=== PATIENT | female | born 1980 ===

== ENCOUNTER 2018-11-23 20:04 | Emergency (ER) | payer OTHER ==
[~2018-11-23] VITALS: Ht 151.1 cm; Wt 54.5 kg
[2018-11-23 20:15] VITALS: BP 121/74
[2018-11-23 21:21] LABS: URINE HCG NEGATIVE (NEG)
[2018-11-23 21:23] LABS: CLARITY,URINE SLIGHTLY CLOUDY (Clear); COLOR,URINE YELLOW (Yellow); GLUCOSE, URINE NEGATIVE (Neg); KETONES,URINE NEGATIVE (Neg); LEUKOCYTE ESTERASE ,URINE SMALL (Neg); NITRITES, URINE NEGATIVE (Neg); OCCULT BLOOD,URINE SMALL (Neg); PROTEIN,URINE TRACE mg/dl (Neg)
[2018-11-23 21:25] LABS: UA COLLECTION TYPE VOIDED
[2018-11-23 21:43] LABS: BACTERIA,URINE 2+ /HPF (Neg); CAL OXALATE CRYSTALS 2+ /HPF (NEGATIVE); MUCUS STRANDS MANY /LPF (Neg); RBC,URINE NONE SEEN /HPF (0-2); SQUAMOUS EPITHELIAL CELL,UR MANY /LPF (FEW)
--- NOTE | 2018-11-23 21:45 | NUR ---
URINE REJECTED FOR CULTURE
== END 2018-11-23 22:21 | disposition left against medical advice (07) ==
LOC: ER 20:07
DX: N89.8 Other specified noninflammatory disorders of vagina (principal); Z53.21 Procedure and treatment not carried out due to patient leaving prior to being seen by health care provider
CPT/HCPCS: 36415; 81001; 81025; 87491; 99281